=== PATIENT | female | born 1995 | race Caucasian/White ===

== ENCOUNTER 2019-07-29 22:55 | Emergency (ER) | payer MEDICAID ==
[~2019-07-29] VITALS: Ht 157.5 cm; Wt 77.6 kg
[2019-07-29 23:06] VITALS: BP_SYST 139
[2019-07-30] MEDS ORDERED: ALBUTEROL SULFATE 0.083% 2.5 MG/3 ML VIAL.NEB INH ONE
[2019-07-30] MEDS ORDERED: methylPREDNISolone SOD SUCC/PF 62.5 MG/ML VIAL IM ONE (02:00)
[2019-07-30] MEDS ORDERED: LORazepam 1 MG TABLET PO ONE (02:45)
[2019-07-30 03:38] VITALS: BP_SYST 127
== END 2019-07-30 03:38 | disposition home or self-care (01) ==
LOC: SED 22:55
DX: F41.9 Anxiety disorder, unspecified (principal); R06.00 Dyspnea, unspecified; J45.909 Unspecified asthma, uncomplicated
CPT/HCPCS: 71045; 94640; 99283; J2930; J7613